=== PATIENT | female | born 1980 | race Caucasian/White ===

== ENCOUNTER 2019-09-07 19:25 | Emergency (ER) | payer SELFPAY ==
[2019-09-07] MEDS ORDERED: Tobramycin Sulfate 0.3% Ophth Susp 5 ml Bottle ONE (19:41)
[2019-09-07] MEDS ORDERED: Fluorescein Opthalmic Strip ONE (19:41)
[2019-09-07] MEDS ORDERED: Tetracaine 0.5% OPHTH SOLN/PF 4 ML BOT ONE (19:41)
== END 2019-09-07 19:50 | disposition home or self-care (01) ==
LOC: BURERS 19:25
DX: H10.9 Unspecified conjunctivitis (principal)

== ENCOUNTER 2020-07-03 19:10 | Emergency (ER) | payer SELFPAY ==
[~2020-07-03 19:10] MED LIST: Iopamidol 370 76% 100 ML VIAL ONE
[2020-07-03 19:38] LABS: Bilirubin Negative (Negative); Blood, Urine Trace (Negative); Glucose, Urine (Dipstick) Negative (Negative); Ketone, Urine Negative (Negative); Leukocyte Negative (Negative); Nitrite Negative (Negative); Protein, Urine (Dipstick) Negative (Neg-Trace); Urobilinogen 0.2 mg/dL (Less than 2)
[2020-07-03 19:39] LABS: Clarity Hazy (Clear); RBC/HPF 0-3 HPF (0-3); Specific Gravity, Urine 1.034 (1.002-1.036); Squamous Epithelial 0-3 HPF (0-3); WBC/HPF 0-3 HPF (0-3)
[2020-07-03 19:40] LABS: Bacteria/HPF 1+ HPF (None Seen); Calcium Oxalate Crystals 2+ HPF (None Seen); Mucous/LPF Few LPF (<2+)
[2020-07-03 19:41] LABS: Pregnancy Test - Urine (BHCG) Negative (Negative); Pregu Control Background? CLEAR/WHITE (CLR/WHITE); Pregu Control Bar Appear? YES (CONTROL BAR); Specific Gravity 1.034 (1.002-1.036)
[2020-07-03 19:47] LABS: #Basophils 0.1 thou/uL (0.0-0.2); #Eosinphils 0.3 thou/uL (0.0-0.7); #Lymphocytes 1.8 thou/uL (1.20-3.40); #Monocytes 0.3 thou/uL (0.11-0.59); %Eosinophils 5.5 % (0.0-10.0); %Lymphocytes 32.3 % (21.0-51.0); %Monocytes 6.1 % (0.0-10.0); %Neutrophils 55.1 % (42.0-75.0); Hemoglobin 13.4 g/dL (12.0-16.0); Mean Corpuscular HGB CONC 30.6 g/dL (32.0-36.0); Mean Corpuscular Hemoglobin 28.5 pg (27.0-31.0); Mean Corpuscular Volume 93.3 fL (78.0-98.0); Mean Platelet Volume 6.7 fL (7.4-10.4); Platelet Count 315 thou/uL (130-400); RBC Distribution Width 12.1 % (11.5-14.5); Red Blood Cell (RBC) Count 4.71 mill/uL (4.20-5.40); White Blood Cell (WBC) Count 5.4 thou/uL (4.8-10.8)
[2020-07-03 20:05] LABS: ALT (SGPT) 27 U/L (8-55); AST (SGOT) 22 U/L (5-34); Albumin 4.1 g/dL (3.5-5.0); Alkaline Phosphatase 48 U/L (40-110); Anion Gap 14 mmol/L (10-20); BUN (Urea Nitrogen) 11 mg/dL (7.0-18.7); Bilirubin, Total 0.3 mg/dL (0.2-1.2); Calc. Creatinine Clearance 0 mL/min (70-130); Carbon Dioxide 26 mmol/L (22-29); Chloride 106 mmol/L (98-107); Estimated GFR-MDRD 80; Globulin 3.1 g/dL (2.4-3.5); Glucose 71 mg/dL (70-105); Lipase 31 U/L (8-78); Potassium 3.6 mmol/L (3.5-5.1); Protein, Total 7.2 g/dL (6.0-8.3); Sodium 142 mmol/L (136-145)
--- NOTE | 2020-07-03 21:09 | CT ---
CT ABDOMEN AND PELVIS WITH CONTRAST: Date: 07-03-[address] of the abdomen and pelvis was performed for evaluation of right lower quadrant pain. The sc an was done with IV contrast only. No oral contrast was used by request. FINDINGS: The lung bases are clear. The liver, spleen, pancreas, adrenal glands, kidneys, gallbladder and abdom inal aorta showed no acute findings. The bowel shows no dilation or wall thickening. The appendix is normal in appearance. No inflammatory change was seen around bowel. CT of the pelvis shows a generous sized uterus with an IUD in place. No adnexal masses, free fluid, o r surrounding inflammatory change was seen. There are some prominent enlarged right inguinal nodes, the largest measuring up to 3 cm in size and having a little bit of inflammatory change around it. Additionally, there appears to be some enlarged right external iliac nodes. I do not see any transgression of the abdominal wall here to think there is a hernia. There is certainly no sign of dilation of bowel or connection between bowel and the ing uinal findings. IMPRESSION: Prominently enlarged right inguinal and right external iliac nodes. The possibility of an infection i n the areas drained by these nodes should be considered. The remainder of the exam showed no acute fi ndings. Preliminary report called to Dr. Aldana at 2040 on 07-03-2020. POS: HOME
== END 2020-07-03 21:43 | disposition home or self-care (01) ==
LOC: BURERS 19:10
DX: R59.0 Localized enlarged lymph nodes (principal)
CPT/HCPCS: 74177; 80053; 81003; 81015; 81025; 83690; 85025; 87480; 87491; 87510; 87591; 87660; Q9967